=== PATIENT | female | born 1985 | race Two or more races ===

== ENCOUNTER 2023-01-28 14:37 | Emergency (ER) | payer BC ==
[~2023-01-28] VITALS: Ht 165.1 cm; Wt 68.9 kg
--- NOTE | 2023-01-28 14:47 | NUR ---
[id number] FROM WORK FOR WITNESSED SYNCOPAL EPISODE. NO HEAD INJURY ENDORSED, BG ON SCENE WAS 86. PT WAS TRANSFERRED TO BED AND CONNECTED TO MONITOR. VSS. AAOX2. AWAITING MD JIMENEZ.
--- NOTE | 2023-01-28 14:59 | NUR ---
IV ACCESS 18G LEFT AC ESTABLISHED. BLOOD DRAWN AND CALLED LAB FOR CHECKER PRODUCT DESIGN.
[2023-01-28] MEDS: IV NS 0.9% 1,000 ML BAG IV ONE (15:00)
[2023-01-28 15:19] LABS: BASOPHILS # (AUTO) 0.2 K/uL (0.0-0.2); EOSINOPHILS % (AUTO) 1.6 % (0.0-6.0); HEMATOCRIT 41 % (33-45); HEMOGLOBIN 13.8 g/dL (11.5-14.8); LYMPHOCYTES # (AUTO) 1.9 K/uL (0.8-4.8); LYMPHOCYTES % (AUTO) 23.6 % (20.0-44.0); MEAN CORPUSCULAR HGB CONC 34 g/dl (31.0-36.0); MEAN CORPUSCULAR VOLUME 90 fL (82-100); MONOCYTES # (AUTO) 0.4 K/uL (0.1-1.30); NEUTROPHILS # (AUTO) 5.4 K/uL (1.8-8.9); NEUTROPHILS % (AUTO) 67.8 % (43.0-81.0); PLATELET COUNT (AUTO) 348 K/uL (150-450); WHITE BLOOD COUNT (AUTO) 7.9 K/uL (4.3-11.0)
--- NOTE | 2023-01-28 15:30 | NUR ---
URINE SAMPLE COLLECTED AND SENT TO LAB.
[2023-01-28 15:33] LABS: ALANINE AMINOTRANSFERASE 58 U/L (12-78); ALBUMIN 3.9 g/dL (3.4-5.0); ALKALINE PHOSPHATASE 64 U/L (46-116); ASPARTATE AMINOTRANSFERASE 38 U/L (15-37); BILIRUBIN,DIRECT 0.1 mg/dL (0.0-0.2); BILIRUBIN,TOTAL 0.3 mg/dL (0.2-1.0); CALCIUM, SERUM 8.8 mg/dL (8.5-10.1); CARBON DIOXIDE 21 mmol/L (21-32); CHLORIDE 102 mmol/L (98-107); CREATININE 0.8 mg/dL (0.6-1.3); GLUCOSE 104 mg/dL (74-106); POTASSIUM 2.9 mmol/L (3.5-5.1); SODIUM SERUM 138 mmol/L (136-145); TOTAL PROTEIN, SERUM 8.6 g/dL (6.4-8.2); UREA NITROGEN, BLOOD 17 mg/dL (7-18)
[2023-01-28] MEDS ORDERED: diphenhydrAMINE HCL 50 MG/ML VIAL ONE (16:46)
[2023-01-28] MEDS ORDERED: KETOROLAC TROMETHAMINE INJ 30 MG/ML VIAL ONE (16:46)
[2023-01-28] MEDS ORDERED: PROCHLORPERAZINE EDISYLATE 10 MG/2 ML VIAL ONE (16:46)
[2023-01-28] MEDS ORDERED: POTASSIUM CHLORIDE 20 MEQ TAB.PRT.SR PO ONE (16:47)
[2023-01-28] MEDS: KETOROLAC TROMETHAMINE INJ 30 MG/ML VIAL IV ONE (16:49)
[2023-01-28] MEDS: POTASSIUM CHLORIDE 20 MEQ TAB.PRT.SR PO ONE (16:49)
[2023-01-28] MEDS: PROCHLORPERAZINE EDISYLATE 10 MG/2 ML VIAL IVP ONE (16:49)
[2023-01-28] MEDS: diphenhydrAMINE HCL 50 MG/ML VIAL IV ONE (16:49)
--- NOTE | 2023-01-28 17:02 | NUR ---
Administered medications as prescribed, verified meds with 2nd RN. Patient tolerated well.
[2023-01-28] MEDS ORDERED: PROC10TA29 PO (18:02)
[2023-01-28 18:10] VITALS: BP 138/94
== END 2023-01-28 18:13 | disposition home or self-care (01) ==
LOC: ER 14:39
DX: R55 Syncope and collapse (principal); E87.6 Hypokalemia; Z88.8 Allergy status to other drugs, medicaments and biological substances
CPT/HCPCS: 99285; 96374; 71045; 96375; 96361; 93005; 85025; 80048; 80076; 84703; 36415; 84484; 85730; 86850; J0780; J1200; J1885; J7030